=== PATIENT | female | born 1990 | race Caucasian/White ===

== ENCOUNTER 2017-06-16 01:39 | Emergency (ER) | payer OTHER ==
[~2017-06-16] VITALS: Ht 165.1 cm; Wt 72.6 kg
--- NOTE | 2017-06-16 03:15 | NUR ---
Patient discharged to home in stable conditon with friend taking patient home. Written and verbal after care instructions given. Patient verbalizes understanding of instructions. Walked out of ER with no distress noted
[2017-06-16 03:16] VITALS: BP 125/50
== END 2017-06-16 03:17 | disposition home or self-care (01) ==
LOC: ER 01:45
DX: S43.004A Unspecified dislocation of right shoulder joint, initial encounter (principal); M25.511 Pain in right shoulder; F17.200 Nicotine dependence, unspecified, uncomplicated; Z90.49 Acquired absence of other specified parts of digestive tract; X58.XXXA Exposure to other specified factors, initial encounter; Y93.89 Activity, other specified; Y92.89 Other specified places as the place of occurrence of the external cause; Y99.8 Other external cause status
CPT/HCPCS: 73020; 73030; A4663

== ENCOUNTER 2023-11-20 00:56 | Emergency (ER) | payer OTHER ==
[~2023-11-20] VITALS: Ht 160 cm; Wt 67.6 kg
[2023-11-20] MEDS ORDERED: ONDANSETRON ODT 4 MG TAB.RAPDIS ONE (01:54)
[2023-11-20] MEDS ORDERED: HYDROCODONE/APAP 10-325 MG TABLET ONE (01:54)
[2023-11-20] MEDS: HYDROCODONE/APAP 10-325 MG TABLET PO ONE (02:10)
[2023-11-20] MEDS: ONDANSETRON ODT 4 MG TAB.RAPDIS SL ONE (02:10)
[2023-11-20] MEDS ORDERED: CYCL10TA9 PO (03:19)
[2023-11-20] MEDS ORDERED: HYDR-3980 PO (03:19)
[2023-11-20] MEDS ORDERED: ONDA4TAB11 PO (03:19)
[2023-11-20] MEDS ORDERED: diphenhydrAMINE 50 MG CAPSULE ONE (03:24)
[2023-11-20] MEDS: diphenhydrAMINE 50 MG CAPSULE PO ONE (03:25)
[2023-11-20 03:38] VITALS: BP 124/80; TEMP 97.8; O2SAT 99
== END 2023-11-20 03:39 | disposition home or self-care (01) ==
LOC: ER 01:13
DX: S16.1XXA Strain of muscle, fascia and tendon at neck level, initial encounter (principal); F17.210 Nicotine dependence, cigarettes, uncomplicated; Z90.49 Acquired absence of other specified parts of digestive tract; V89.2XXA Person injured in unspecified motor-vehicle accident, traffic, initial encounter; Y93.89 Activity, other specified; Y92.89 Other specified places as the place of occurrence of the external cause; Y99.8 Other external cause status
CPT/HCPCS: 99284; 72125; 99406; 72072; 72100; Q0163; A4606; A4663; Q0162